=== PATIENT | female | born 1980 | race Caucasian/White ===

== ENCOUNTER 2024-06-18 19:45 | Observation (INO) ==
[2024-06-18] MEDS: levETIRAcetam 500 MG/5 ML VIAL IV STA (20:15)
[2024-06-18] MEDS: SODIUM CHLORIDE 0.9% 1,000 ML IV ONE ×2 (20:15→21:43)
[2024-06-18] MEDS: ONDANSETRON INJ 2 MG/ML 2 ML VIAL IV STA (20:46)
[2024-06-18 20:54] LABS: Hematocrit (blood only) 31.9 % (37.0-47.0); Hemoglobin 10.1 g/dl (12.0-16.0); Mean Corpuscular Hemoglobin 26.6 pg (25.0-34.0); Mean Corpuscular Hgb Conc 31.7 g/dL (32.0-36.0); Mean Corpuscular Volume 84.2 fL (80.0-100.0); Mean Platelet Volume 11.8 fL (9.4-12.4); Platelet Count 335 K/uL (130-400); RDW Coefficient of Variation 14.6 % (11.5-14.5); RDW Standard Deviation 44.7 fL (36.4-46.3); Red Blood Count 3.79 M/uL (4.20-5.40); White Blood Count 9.94 K/ul (4.8-10.8)
[2024-06-18 21:05] LABS: Influenza A virus by PCR Negative (Neg); Influenza B virus by PCR Negative (Neg); RSV by PCR Negative (Neg); SARS CoV2 RNA(COVID-19) Ceph NEGATIVE (Negative)
[2024-06-18 21:07] LABS: BUN Creatinine Ratio 10.4 (10-20); Bilirubin Direct 0.1 mg/dl (0-0.2); Bilirubin,Total 0.5 mg/dl (0.2-1.0); Calcium 8.9 mg/dl (8.6-10.3); Creatinine Clr Calc Pharmacy 110.3 ml/min; Magnesium 1.3 mg/dl (1.7-2.4); Phosphorus 2.7 mg/dl (2.5-4.9); Potassium 2.4 mmol/L (3.5-5.1); Total Protein 7.3 gm/dl (6.0-8.3)
[2024-06-18] MEDS: POTASSIUM CHLORIDE / WTR 10 MEQ/100 ML PLCT IV SCH (21:43)
[2024-06-18] MEDS: MAGNESIUM SULFATE / D5W 1 GM/100 ML BAG IV STA (21:43)
[2024-06-18 22:31] LABS: Amphetamines+Metham, Urine Neg (Neg); Barbiturates, Urine Neg (Neg); Benzodiazepine, Urine Neg (Neg); Cocaine, Urine Neg (Neg); Fentanyl, Urine Neg (Neg); MDMA (Ecstacy), Urine Neg (Neg); Marijuana, Urine Neg (Neg); Methadone, Urine Neg (Neg); Opiate, Urine Neg (Neg); Phencyclidine, Urine Neg (Neg)
[2024-06-18] MEDS: MAGNESIUM SULFATE / D5W 1 GM/100 ML BAG IV SCH (22:42)
[2024-06-18 23:36] LABS: INR 1.3 (0.9-1.1); Prothrombin Time 13.4 Seconds (9.0-12.0)
--- NOTE | 2024-06-18 23:43 | XRay Report ---
Exam(s): XR CXR 1 VIEW EXAM: XR Chest, 1 View CLINICAL HISTORY: Reason for exam: cough. TECHNIQUE: Frontal view of the chest. COMPARISON: No relevant prior studies available. FINDINGS: Lungs: Mild to moderate peribronchial thickening of the central lower lobe bronchi with a patchy opacity at the left lung base. No consolidation. Pleural space: Unremarkable. No pneumothorax. Heart: Unremarkable. No cardiomegaly. Mediastinum: Unremarkable. Normal mediastinal contour. Bones/joints: Unremarkable. No acute fracture. IMPRESSION: Bronchitis with left lower lobe infiltrate. Electronically signed by: Keily Wilson MD 06/18/24 23:42 PM
[2024-06-18 23:59] LABS: Ferritin 58.5 ng/ml (8-388)
[2024-06-19 00:04] LABS: Folate (Folic Acid),Ser orPlas 7.05 ng/ml (>5.38)
[2024-06-19 00:17] LABS: Thyroid Stimulating Hormone 0.334 uIu/ml (0.300-4.500)
[2024-06-19] MEDS: METOCLOPRAMIDE HCL INJ 5 MG/ML 2 ML VIAL IV STA (00:24)
[2024-06-19] MEDS: POTASSIUM CHLORIDE PWD 20 MEQ PACK PO STA ×3 (00:24→04:14)
[2024-06-19] MEDS: POTASSIUM CHLORIDE 20 MEQ in LACTATED RINGER'S 1,000 ML IV STA (00:24)
[2024-06-19 00:51] LABS: Pregnancy Test, Urine Negative (Negative)
[2024-06-19 00:55] LABS: Appearance Urine Clear (Clear); Bacteria Urine Automated None Seen (None Seen); Bilirubin Urine Negative (Negative); Blood Urine Trace (Negative); Color Urine Yellow; Epithelial Cell Urine Auto 0-2 /hpf (0-2); Glucose Urine UA Negative (Negative); Ketones Urine Negative (Negative); Leukocyte Esterase Urine Negative (Negative); Nitrite Urine Negative (Negative); Protein Urine 3+ (Negative); Specific Gravity Urine 1.011 (1.000-1.030); Urobilinogen Urine Negative (Negative); WBC Urine Automated 0-5 /hpf (0-5); pH Urine 6.5 (4.5-7.5)
--- NOTE | 2024-06-19 01:13 | CT Scan Report ---
Exam(s): CT HEAD Without Contrast EXAM: CT Head Without Intravenous Contrast CLINICAL HISTORY: Reason for exam: seizure. TECHNIQUE: Axial computed tomography images of the head/brain without intravenous contrast. CTDI is 37.51 mGy and DLP is 546.36 mGy-cm. Automated exposure control was utilized for the study. A dose lowering technique was utilized adhering to the principles of ALARA. COMPARISON: No relevant prior studies available. FINDINGS: Brain: Unremarkable. No hemorrhage. No significant white matter disease. No edema. Ventricles: Unremarkable. No ventriculomegaly. Bones/joints: Unremarkable. No acute fracture. Soft tissues: Unremarkable. Sinuses: Unremarkable as visualized. No acute sinusitis. Mastoid air cells: Unremarkable as visualized. No mastoid effusion. IMPRESSION: No evidence of acute intracranial pathology. Electronically signed by: Keily Wilson MD 06/19/24 01:12 AM
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
[2024-06-19] MEDS ORDERED: LORazepam 2 MG/1 ML VIAL IV PRN (01:20)
[2024-06-19] MEDS ORDERED: PROMETHAZINE 6.25 MG/50.25 ML BAG IV PRN (01:21)
[2024-06-19 01:56] LABS: Base Excess VBG -7.7 mEq/L; HCO3 VBG 23 mmol/L; Oxygen Saturation VBG 75.4 %; PCO2 VBG 73 mmHg (38-50); PO2 VBG 54 mmHg; pH VBG 7.11 (7.36-7.41)
[2024-06-19 02:00] LABS: Hematocrit (blood only) 26.1 % (37.0-47.0); Hemoglobin 8.3 g/dl (12.0-16.0); Reticulocyte % 0.63 % (0.50-2.00)
[2024-06-19 03:34] LABS: HCO3 VBG 27 mmol/L; Oxygen Saturation VBG < 60.0 %; PCO2 VBG 48 mmHg (38-50); PO2 VBG 33 mmHg; pH VBG 7.36 (7.36-7.41)
[2024-06-19 03:40] LABS: Basophils # (auto) 0.02 K/uL (0.00-0.20); Basophils % (auto) 0.2 %; Eosinophils # (auto) 0.02 K/uL (0.00-0.50); Eosinophils % (auto) 0.2 %; Hemoglobin 8.3 g/dl (12.0-16.0); Immature Granulocytes # (auto) 0.04 K/uL (0.01-0.20); Immature Granulocytes % (auto) 0.5 %; Lymphocytes # (auto) 0.63 K/uL (1.20-3.40); Lymphocytes % (auto) 7.5 %; Mean Corpuscular Hgb Conc 31.9 g/dL (32.0-36.0); Mean Corpuscular Volume 84.7 fL (80.0-100.0); Mean Platelet Volume 11.2 fL (9.4-12.4); Monocytes # (auto) 0.69 K/uL (0.11-0.59); Monocytes % (auto) 8.3 %; Neutrophils # (auto) 6.96 K/uL (1.40-6.50); Neutrophils % (auto) 83.3 %; Platelet Count 222 K/uL (130-400); RDW Coefficient of Variation 14.6 % (11.5-14.5); RDW Standard Deviation 45.1 fL (36.4-46.3); Red Blood Count 3.07 M/uL (4.20-5.40); White Blood Count 8.36 K/ul (4.8-10.8)
[2024-06-19 04:12] LABS: BUN Creatinine Ratio 8.7 (10-20); Bilirubin Direct 0.1 mg/dl (0-0.2); Bilirubin,Total 0.3 mg/dl (0.2-1.0); Calcium 7.6 mg/dl (8.6-10.3); Creatinine Clr Calc Pharmacy 160.7 ml/min; Magnesium 2.2 mg/dl (1.7-2.4); Potassium 3.5 mmol/L (3.5-5.1); Total Protein 5.8 gm/dl (6.0-8.3)
[2024-06-19] MEDS: CITALOPRAM 40 MG TAB PO SCH (08:28)
[2024-06-19] MEDS: BUPRENORPHINE/NALOXONE 8/2 MG TAB SL SCH (08:29)
[2024-06-19 08:48] LABS: Estimated Average Glucose 108 mg/dl; Hemoglobin A1C 5.4 % (4.5-5.6)
--- NOTE | 2024-06-19 09:42 | Electrocardiogram Report ---
Test Reason : Blood Pressure : */* mmHG Vent. Rate : 104 BPM Atrial Rate : 104 BPM P-R Int : 164 ms QRS Dur : 82 ms QT Int : 398 ms P-R-T Axes : 48 61 27 degrees QTcB Int : 523 ms Sinus tachycardia Nonspecific ST abnormality Prolonged QT Abnormal ECG No previous ECGs available Confirmed by Nidhi Holden (Sasha) on 06/19/2024 9:42:01 AM Referred By: REFERRED SELF Confirmed By: Nidhi Holden
[2024-06-19] MEDS: GADOBUTROL 65ML VIAL IV ONE (10:21)
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
--- NOTE | 2024-06-19 16:12 | Neurology Consultation ---
Date of Consultation June 19, 2024 Assessment & Plan (1) Seizure: Acute onset episode of loss of consciousness suspect seizure Provoked vers unprovoked etiology remains unclear MRI brain with and without contrast reveals no overt intracranial abnormality She was notably hypokalemic with hypomagnesemia as well No driving per [place] state law due to the above Recommend Keppra 500mg PO BID Recommend obtain EEGinpatient during this hospitalization Provide seizure precautions Utilize benzodiazepines emergently for any breakthrough clinical seizure like activity Recommend echocardiogram as part of complete workup Recommend monitor continued orthostatic vital sign assessments Continue frequent neurological assessments Obtain stat CT brain without contrast for any acute neurological decline Continue to monitor/control blood pressure & blood glucose Continue to monitor renal and hepatic function, keep euvolemic Continue to monitor electrolytes, replenish as needed Continue to monitor telemetry closely Recommend ZioPatch at DC if no evidence of arrhythmia during inpatient monitoring Ok from neurology perspective for VTE prophylaxis PT/OT/SLT to eval and treat Evaluate for KELVIN and consider outpatient polysomnography Plan for follow up outpatient with adult Neurology Telehealth Consultation Telehealth Information Telehealth Information: I performed this visit using a real-time telehealth connection between my location and the patients location ([facility]). After connecting through interactive tele-video, patient was identified by name and date of and/or wristband check.Patient (or authorized healthcare litigation claim representative) was informed that this was a telemedicine visit and it was being conducted confidentially over secure lines. My office door was closed and no one else was present in the room with me.Patient (or authorized healthcare litigation claim representative) provided consent to proceed with the visit, expressed an understanding of privacy and security of the telemedicine visit, and gave permission to have a hospital litigation claim representative in the room in order to assist with the visit and to conduct portions of the visit, as needed. I informed the patient (or authorized healthcare litigation claim representative) that I reviewed their record and presented the opportunity for them to ask any questions regarding the visit today. The patient agreed to participate. History of Present Illness Reason for Consultation: Seizure Requesting Physician: Dr. Palomares Attending Physician: Tiffanie Palomares MD History of Present Illness 43yo female presented to ER following episode of possible seizure versus syncope. Reportedly patient not feeling well in days leading up to yesterday and reported hearing a loud thud in their bedroom. She was reported to have demonstrated whole body shaking similar to an episode in her past. Reportedly the episode last five minutes without evidence of tongue biting or loss of bowel or bladder. It is reported that she was clinching her jaw/grinding her teeth and frothing from her mouth. Afterward she was confused/not remembering the event. She reports hx of polysubstance abuse. Denies recent changes in medications. Reports not feeling well recently and not sleeping more than 2-3 hours per night. She denies visual auditory olfactory gustatory or gastrointestinal sensation leading up to the event. She states she does not remember anything just before the event. She states she last remembers being upstairs with her daughter and then her was asking if she was okay. She denies SI/HI or typically feeling any aggression. She is agreeable to start Keppra BID and aware of/agreeable to no driving per [place] state law following an event of loss of consciousness/possible seizure. She verbalizes understanding of seizure precautions. She is agreeable to outpatient follow up. Allergies Allergy/AdvReac Type Severity Reaction Status Date / Time No Known Allergies Allergy Unverified 06/18/24 21:55 Home Medications Medication Instructions Recorded Confirmed Type buprenorphine 8 mg-naloxone 2 mg 2.5 tab sublingual DAILY 06/18/24 06/18/24 History sublingual tablet citalopram 40 mg tablet 40 mg PO DAILY 06/18/24 06/18/24 History Patient History Social History Smoking Status: Current every day smoker Tobacco Type: E-cigarettes / Vaping Hx Alcohol Use: No Hx Substance Use: No Preferred Language: Ecuadorean Communication Ability: Effective Exceptional Children Teacher Assistant Required: No Beliefs That Will Affect Care: None Current Living Situation: Spouse and Family Feels Safe at Home: Yes Physical Exam Neurological Examination: Mental Status: Awake and alert. Oriented to person, place, and time. Fluency naming repetition and comprehension appear grossly intact. Affect remains appropriate. Bruising left forehead CN testing: I: Deferred II:Reports no changes in visual acuity III/IV/: No evidence of gaze preference, hippus, nystagmus or roving eye movements V: Facial sensation reportedly grossly intact to light touch bilaterally VII: Facial movements appear without evidence of asymmetry VIII: Hearing appears grossly intact to loud voice bilaterally IX/X: Palate is unable to be accurately visualized via telemedicine XI: Shoulder shrug appears symmetric/ grossly intact bilaterally XII: Tongue protrudes midline without evidence of biting Motor exam: Strength appears grossly intact/symmetric in all extremities Sensory: Sensation is reportedly grossly intact throughout Coordination: No apparent evidence of dysmetria or dysdiadochokinesia Reflexes: Deferred Gait: Deferred Results & Data Vital Signs (Past 12 Hours) Vital Signs Temp Pulse Pulse Resp BP Pulse Ox O2 Del Method 06/19/24 16:05 79 06/19/24 15:43 37 C 81 20 87/58 L 95 Room Air 06/19/24 13:23 77 18 89/63 L 95 Room Air 06/19/24 10:37 82 16 85/61 L 94 Room Air 06/19/24 08:00 94 H 18 92/68 L 95 Room Air 06/19/24 06:24 77 17 100/73 94 Room Air 06/19/24 04:18 36.6 C 79 16 93/69 L 93 Room Air Laboratory Results Abnormal lab results 06/18/24 06/18/24 06/18/24 Range/Units 19:25 20:17 21:45 RBC 3.79 L (4.20-5.40) M/uL Hgb 10.1 L (12.0-16.0) g/dl Hct 31.9 L (37.0-47.0) % MCHC 31.7 L (32.0-36.0) g/dL RDW Coeff of Brian 14.6 H (11.5-14.5) % Neut # (Auto) (1.40-6.50) K/uL Lymph # (Auto) (1.20-3.40) K/uL [place] # (Auto) (0.11-0.59) K/uL PT 13.4 H (9.0-12.0) Seconds INR 1.3 H (0.9-1.1) VBG pH (7.36-7.41) VBG pCO2 (38-50) mmHg Potassium 2.4 L* (3.5-5.1) mmol/L Anion Gap 16 H (3-11) BUN (6-23) mg/dl Creatinine (0.6-1.2) mg/dl BUN/Creatinine Ratio (10-20) Glucose 152 H (70-99(Fasting)) mg/dl POC Glucose 120 H (70-99) mg/dl Calcium (8.6-10.3) mg/dl Magnesium 1.3 L (1.7-2.4) mg/dl Iron 11 L (35-150) mcg/dl AST 72 H (13-39) U/L Total Protein (6.0-8.3) gm/dl Albumin (3.4-5.0) gm/dl Urine Protein 3+ H (Negative) Urine Blood Trace H (Negative) Urine RBC (Auto) 3-5 H (0-2) /hpf U Hyaline Cast (Auto) 3-5 H (0-2) /lpf 06/19/24 06/19/24 Range/Units 01:28 03:26 RBC 3.07 L (4.20-5.40) M/uL Hgb 8.3 L 8.3 L (12.0-16.0) g/dl Hct 26.1 L 26.0 L (37.0-47.0) % MCHC 31.9 L (32.0-36.0) g/dL RDW Coeff of Brian 14.6 H (11.5-14.5) % Neut # (Auto) 6.96 H (1.40-6.50) K/uL Lymph # (Auto) 0.63 L (1.20-3.40) K/uL [place] # (Auto) 0.69 H (0.11-0.59) K/uL PT (9.0-12.0) Seconds INR (0.9-1.1) VBG pH 7.11 L (7.36-7.41) VBG pCO2 73 H (38-50) mmHg Potassium (3.5-5.1) mmol/L Anion Gap (3-11) BUN 4 L (6-23) mg/dl Creatinine 0.46 L (0.6-1.2) mg/dl BUN/Creatinine Ratio 8.7 L (10-20) Glucose 105 H (70-99(Fasting)) mg/dl POC Glucose (70-99) mg/dl Calcium 7.6 L (8.6-10.3) mg/dl Magnesium (1.7-2.4) mg/dl Iron (35-150) mcg/dl AST 42 H (13-39) U/L Total Protein 5.8 L D (6.0-8.3) gm/dl Albumin 3.0 L (3.4-5.0) gm/dl Urine Protein (Negative) Urine Blood (Negative) Urine RBC (Auto) (0-2) /hpf U Hyaline Cast (Auto) (0-2) /lpf Diagnostic Findings Chest X-Ray 06/18/24 19:59 Exam(s): XR CXR 1 VIEW EXAM: XR Chest, 1 View CLINICAL HISTORY: Reason for exam: cough. TECHNIQUE: Frontal view of the chest. COMPARISON: No relevant prior studies available. FINDINGS: Lungs: Mild to moderate peribronchial thickening of the central lower lobe bronchi with a patchy opacity at the left lung base. No consolidation. Pleural space: Unremarkable. No pneumothorax. Heart: Unremarkable. No cardiomegaly. Mediastinum: Unremarkable. Normal mediastinal contour. Bones/joints: Unremarkable. No acute fracture. IMPRESSION: Bronchitis with left lower lobe infiltrate. Electronically signed by: Keily Wilson MD 06/18/24 23:[address] 06/18/24 19:59 Exam(s): CT HEAD Without Contrast EXAM: CT Head Without Intravenous Contrast CLINICAL HISTORY: Reason for exam: seizure. TECHNIQUE: Axial computed tomography images of the head/brain without intravenous contrast. CTDI is 37.51 mGy and DLP is 546.36 mGy-cm. Automated exposure control was utilized for the study. A dose lowering technique was utilized adhering to the principles of ALARA. COMPARISON: No relevant prior studies available. FINDINGS: Brain: Unremarkable. No hemorrhage. No significant white matter disease. No edema. Ventricles: Unremarkable. No ventriculomegaly. Bones/joints: Unremarkable. No acute fracture. Soft tissues: Unremarkable. Sinuses: Unremarkable as visualized. No acute sinusitis. Mastoid air cells: Unremarkable as visualized. No mastoid effusion. IMPRESSION: No evidence of acute intracranial pathology. Electronically signed by: Keily Wilson MD 06/19/24 01:12 AM Brain MRI 06/19/24 01:19 HISTORY: Seizures. Chronic anemia. Trauma to the head with left forehead bruising. TECHNIQUE: Multiplanar multiecho MR imaging of the brain with and without IV contrast. 7.5 mL of Gadavist IV contrast was administered. COMPARISON: None. FINDINGS: The sella is not expanded. The cerebellar tonsils do not extend below the foramen magnum. The included upper cervical spinal cord is unremarkable in appearance. No areas of restricted diffusion to suggest acute infarct.The brain parenchyma demonstrates normal signal intensity on T2/FLAIR weighted imaging. No abnormal susceptibility artifact to suggest intracranial hemorrhage.No abnormal intracranial enhancement. Ventricular caliber is appropriate. Fourth ventricle is midline. The basal cisterns are patent. The major intracranial flow voids are maintained. The globes and orbits are unremarkable. The soft tissues of the skull base and scalp are unremarkable. The paranasal sinuses and mastoid air cells are well aerated. Mild maxillary sinus mucosal thickening. No air-fluid levels. IMPRESSION: * No acute findings. No evidence of acute infarct, intracranial hemorrhage, or enhancing intracranial mass. Electronically signed by Faustino Leroy 06-19-2024 10:37 AM Medications Administered Home Medications Medication Instructions Recorded Confirmed Last Taken buprenorphine 8 mg-naloxone 2 mg 2.5 tab sublingual DAILY 06/18/24 06/18/24 Unknown sublingual tablet citalopram 40 mg tablet 40 mg PO DAILY 06/18/24 06/18/24 Unknown Active Medications Generic Name Dose Route Start Last Admin Trade Name Freq PRN Reason Stop Dose Admin Buprenorphine/Naloxone 2.5 tab 06/19/24 09:00 06/19/24 08:29 Buprenorphine/Naloxone 8/2 Mg Tab SL 07/19/24 08:59 2.5 tab DAILY DARRIUS Administration Citalopram Hydrobromide 40 mg 06/19/24 09:00 06/19/24 08:28 Citalopram 40 Mg Tab PO 07/19/24 08:59 40 mg DAILY DARRIUS Administration
[2024-06-19] MEDS: ACETAMINOPHEN 325 MG TAB PO PRN (16:39)
[2024-06-19] MEDS: SODIUM CHLORIDE 0.9% 1,000 ML IV ONE (16:39)
[2024-06-19] MEDS: NICOTINE 14 MG/24 HR PATCH TD SCH (16:39)
[2024-06-19] MEDS: FERROUS SULFATE 325 MG TAB PO SCH (17:52)
[2024-06-19] MEDS: DOXYCYCLINE HYCLATE 100 MG CAP PO SCH (20:23)
[2024-06-19] MEDS: levETIRAcetam 500 MG TAB PO SCH (20:23)
--- NOTE | 2024-06-19 21:59 | Emergency Department Note ---
Impression & Plan Seizure, Hypomagnesemia, Acute hypokalemia ED Provider Note NAME: TOM MARTINEZ AGE: 43 SEX: F : 1980 ARRIVES VIA: Ambulance INFORMANT: Patient, EMS report ED PROVIDER(S): Salty Prado MD CHIEF COMPLAINT: Seizure MEDICAL DECISION MAKING: Patient presents due to concern for possible seizure that occurred prior to arrival. IV was established and blood work was obtained. Patient was ordered IV Keppra [address] head IV fluids. Patient with a normal white count hemoglobin of 10. The patient was having some nausea and vomiting so the patient was ordered IV Zofran. Patient was noted to have a potassium of 2.4 with a mag of 1.3. The patient was ordered 1 g of IV magnesium as well as 20 mEq IV potassium. EKG obtained does have QT prolongation. Did recommend the patient be admitted the patient is comfortable this plan of care. Patient still with some associated nausea and was ordered IV Reglan. The patient was also ordered additional IV fluids. I did speak the on- call hospitalist Dr. Holbrook and the patient was admitted to the medicine service. Chest x-ray with possible left lower lobe infiltrate. Antibiotics deferred to inpatient service. Discussion w/ other healthcare providers: Dr. Holbrook inpatient service Prior /Outside records reviewed: None Differential diagnosis: Epilepsy, infection, hypoglycemia, electrolyte abnormalities, cardiac sources, intracerebral event, trauma, toxicologic, neurologic, syncope, as well as other pathologies. Diagnostics, as interpreted by me: ECG: Sinus tachycardia, rate of 104, normal PA and QRS, prolonged QT no obvious STEMI. Cardiac monitoring: An order was placed for continuous cardiac monitoring. The monitor shows a rate of 102 with tachycardic and regular rhythm. Patient was placed on pulse oximetry Medical decision rules: None Imaging studies: I informally interpreted the patient's CT head does not show obvious ICH with formal report to follow. HPI: Patient presents to concern for possible seizure. Reportedly the heard a loud thud and noticed the patient to have generalized tonic-clonic activity. There were reports that the patient may have had a seizure about 2 years ago but the patient is not on any antiepileptic medication. Patient's BSG was greater than 100 prior to arrival and was afebrile with normal vital signs. Patient states that she does feel as though she has a rug burn to the left side of her forehead. The patient does not believe that she ever had a prior seizure. She does admit to decreased sleep. The patient states that she has felt generally unwell for the last 2 days or so. Patient denies any numbness tingling or focal weakness. Patient does smoke tobacco and does have a cough but it is dry. Patient does have a prior history of drug abuse and does use Suboxone. Patient denies any alcohol or drug use. The PAST MEDICAL HISTORY: Prior history of drug abuse PAST SURGICAL HISTORY: No pertinent past surgical history SOCIAL HISTORY: Prior history of drug abuse. Uses tobacco. HOME MEDICATIONS: See Below ALLERGIES: See Below VITALS: See Below PHYSICAL EXAMINATION: GENERAL: NAD, non-toxic. EYE EXAM: Normal conjunctiva. PERRL, no anisocoria and EOM's grossly intact w/o pain. OROPHARYNX: Moist mucus membranes, grossly normal dentition. NECK: Trachea midline, no stridor. Supple, no nuchal rigidity, no adenopathy, non-tender. No signs of meningismus. FROM of the neck with good chin to chest and neck extension. LUNGS: Clear to auscultation. Normal chest wall mechanics. HEART: Tachycardic and regular, no MRG. ABDOMEN: Abdomen soft, non-tender, no masses, no rebound or guarding. BACK: No CVA TTP. SKIN: No rashes and no bruising. UPPER EXTREMITIES: Upper extremities are grossly normal. LOWER EXTREMITIES: Grossly normal, no edema. NEURO EXAM: A&O x3, no obvious facial asymmetry, normal speech, moves all 4 extremities. Past Med/Surg History Problem List (Updated 06/19/24 @ 21:59 by Salty Prado MD) Acute hypokalemia (Acute) Hypomagnesemia (Acute) Seizure (Acute) Social History Smoking Status: Current every day smoker Tobacco Type: E-cigarettes / Vaping Hx Alcohol Use: No Hx Substance Use: No Preferred Language: [place]al[place] Communication Ability: Effective [employer] Consultant Required: No Beliefs That Will Affect Care: None Current Living Situation: Spouse and Family Feels Safe at Home: Yes Allergies Allergies Allergy/AdvReac Type Severity Reaction Status Date / Time No Known Allergies Allergy Unverified 06/18/24 21:55 Home Meds Home Medications Medication Instructions Recorded Confirmed buprenorphine 8 mg-naloxone 2 mg 2.5 tab sublingual DAILY 06/18/24 06/18/24 sublingual tablet citalopram 40 mg tablet 40 mg PO DAILY 06/18/24 06/18/24 Results & Data (ED) Vital Signs Vital Signs - 24 hr 06/18/24 22:00 06/18/24 22:30 06/19/24 00:00 Pulse Rate 82 75 74 Pulse Rate from SpO2 Sensor 82 75 Respiratory Rate 22 18 16 Blood Pressure 96/62 L 90/59 L 92/50 L Blood Pressure Mean 73 69 64 Pulse Oximetry 96 95 97 Oxygen Delivery Method Room Air Room Air Room Air 06/19/24 01:02 Pulse Rate 76 Pulse Rate from SpO2 Sensor Respiratory Rate Blood Pressure Blood Pressure Mean Pulse Oximetry Oxygen Delivery Method Home Medications Current Medication List: was personally reviewed by me Laboratory Data Attestation: I reviewed the patient's lab results. 06/19/24 03:26 06/19/24 03:26 Lab Results 06/18/24 06/18/24 06/18/24 Range/Units 19:25 20:17 20:20 WBC 9.94 (4.8-10.8) K/ul RBC 3.79 L (4.20-5.40) M/uL Hgb 10.1 L (12.0-16.0) g/dl Hct 31.9 L (37.0-47.0) % MCV 84.2 (80.0-100.0) fL MCH 26.6 (25.0-34.0) pg MCHC 31.7 L (32.0-36.0) g/dL RDW Std Deviation 44.7 (36.4-46.3) fL RDW Coeff of Brian 14.6 H (11.5-14.5) % Plt Count 335 (130-400) K/uL MPV 11.8 (9.4-12.4) fL PT 13.4 H (9.0-12.0) Seconds INR 1.3 H (0.9-1.1) Sodium 137 (136-145) mmol/L Potassium 2.4 L* (3.5-5.1) mmol/L Chloride 99 (98-107) mmol/L Carbon Dioxide 22 (21-32) mmol/L Anion Gap 16 H (3-11) BUN 7 (6-23) mg/dl Creatinine 0.67 (0.6-1.2) mg/dl Est Cr Clr Drug Dosing 110.3 ml/min eGFR 111.84 BUN/Creatinine Ratio 10.4 (10-20) Glucose 152 H (70-99(Fasting)) mg/dl POC Glucose 120 H (70-99) mg/dl Estimat Average Glucose 108 mg/dl Hemoglobin A1c 5.4 (4.5-5.6) % Calcium 8.9 (8.6-10.3) mg/dl Phosphorus 2.7 (2.5-4.9) mg/dl Magnesium 1.3 L (1.7-2.4) mg/dl Iron 11 L (35-150) mcg/dl Transferrin 233 (200-360) mg/dl Ferritin 58.5 (8-388) ng/ml Total Bilirubin 0.5 (0.2-1.0) mg/dl Direct Bilirubin 0.1 (0-0.2) mg/dl AST 72 H (13-39) U/L ALT 30 (7-52) U/L Alkaline Phosphatase 79 (34-104) U/L Total Creatine Kinase 109 (26-192) U/L Total Protein 7.3 (6.0-8.3) gm/dl Albumin 4.0 (3.4-5.0) gm/dl Vitamin B12 509 (180-914) pg/ml Folate 7.05 (>5.38) ng/ml TSH 0.334 (0.300-4.500) uIu/ml Urine Color Urine Appearance (Clear) Urine pH (4.5-7.5) Ur Specific [place] (1.000-1.030) Urine Protein (Negative) Urine Glucose (UA) (Negative) Urine Ketones (Negative) Urine Blood (Negative) Urine Nitrite (Negative) Urine Bilirubin (Negative) Urine Urobilinogen (Negative) Ur Leukocyte Esterase (Negative) Urine WBC (Auto) (0-5) /hpf Urine RBC (Auto) (0-2) /hpf U Hyaline Cast (Auto) (0-2) /lpf U Epithel Cells (Auto) (0-2) /hpf Urine Bacteria (Auto) (None Seen) Urine Test (Negative) Urine Opiates Screen (Neg) Ur Methadone, Qual (Neg) Urine Fentanyl Screen (Neg) Urine Barbiturates (Neg) Ur Phencyclidine (PCP) (Neg) U Amphetamin/Meth Scrn (Neg) MDMA (Ecstasy) Screen (Neg) U Benzodiazepines Scrn (Neg) Ur Cocaine Metabolite (Neg) U Marijuana (THC) Screen (Neg) SARS-CoV-2 (PCR) NEGATIVE (Negative) Influenza Type A (PCR) Negative (Neg) Influenza Type B (PCR) Negative (Neg) RSV (RT-PCR) Negative (Neg) 06/18/24 Range/Units 21:45 WBC (4.8-10.8) K/ul RBC (4.20-5.40) M/uL Hgb (12.0-16.0) g/dl Hct (37.0-47.0) % MCV (80.0-100.0) fL MCH (25.0-34.0) pg MCHC (32.0-36.0) g/dL RDW Std Deviation (36.4-46.3) fL RDW Coeff of Brian (11.5-14.5) % Plt Count (130-400) K/uL MPV (9.4-12.4) fL PT (9.0-12.0) Seconds INR (0.9-1.1) Sodium (136-145) mmol/L Potassium (3.5-5.1) mmol/L Chloride (98-107) mmol/L Carbon Dioxide (21-32) mmol/L Anion Gap (3-11) BUN (6-23) mg/dl Creatinine (0.6-1.2) mg/dl Est Cr Clr Drug Dosing ml/min eGFR BUN/Creatinine Ratio (10-20) Glucose (70-99(Fasting)) mg/dl POC Glucose (70-99) mg/dl Estimat Average Glucose mg/dl Hemoglobin A1c (4.5-5.6) % Calcium (8.6-10.3) mg/dl Phosphorus (2.5-4.9) mg/dl Magnesium (1.7-2.4) mg/dl Iron (35-150) mcg/dl Transferrin (200-360) mg/dl Ferritin (8-388) ng/ml Total Bilirubin (0.2-1.0) mg/dl Direct Bilirubin (0-0.2) mg/dl AST (13-39) U/L ALT (7-52) U/L Alkaline Phosphatase (34-104) U/L Total Creatine Kinase (26-192) U/L Total Protein (6.0-8.3) gm/dl Albumin (3.4-5.0) gm/dl Vitamin B12 (180-914) pg/ml Folate (>5.38) ng/ml TSH (0.300-4.500) uIu/ml Urine Color Yellow Urine Appearance Clear (Clear) Urine pH 6.5 (4.5-7.5) Ur Specific [place] 1.011 (1.000-1.030) Urine Protein 3+ H (Negative) Urine Glucose (UA) Negative (Negative) Urine Ketones Negative (Negative) Urine Blood Trace H (Negative) Urine Nitrite Negative (Negative) Urine Bilirubin Negative (Negative) Urine Urobilinogen Negative (Negative) Ur Leukocyte Esterase Negative (Negative) Urine WBC (Auto) 0-5 (0-5) /hpf Urine RBC (Auto) 3-5 H (0-2) /hpf U Hyaline Cast (Auto) 3-5 H (0-2) /lpf U Epithel Cells (Auto) 0-2 (0-2) /hpf Urine Bacteria (Auto) None Seen (None Seen) Urine Test Negative (Negative) Urine Opiates Screen Neg (Neg) Ur Methadone, Qual Neg (Neg) Urine Fentanyl Screen Neg (Neg) Urine Barbiturates Neg (Neg) Ur Phencyclidine (PCP) Neg (Neg) U Amphetamin/Meth Scrn Neg (Neg) MDMA (Ecstasy) Screen Neg (Neg) U Benzodiazepines Scrn Neg (Neg) Ur Cocaine Metabolite Neg (Neg) U Marijuana (THC) Screen Neg (Neg) SARS-CoV-2 (PCR) (Negative) Influenza Type A (PCR) (Neg) Influenza Type B (PCR) (Neg) RSV (RT-PCR) (Neg) Administered Medications Acetaminophen (Acetaminophen 325 Mg Tab) 650 mg PO QID PRN PRN Reason: pain/fever Stop: 07/19/24 01:19 Last Admin: 06/19/24 16:39 Dose: 650 mg Documented By: MEENA Buprenorphine/Naloxone (Buprenorphine/Naloxone 8/2 Mg Tab) 2.5 tab SL DAILY DARRIUS Stop: 07/19/24 08:59 Last Admin: 06/19/24 08:29 Dose: 2.5 tab Documented By: CASEY Citalopram Hydrobromide (Citalopram 40 Mg Tab) 40 mg PO DAILY DARRIUS Stop: 07/19/24 08:59 Last Admin: 06/19/24 08:28 Dose: 40 mg Documented By: CASEY Doxycycline Hyclate (Doxycycline Hyclate 100 Mg Cap) 100 mg PO BID DARRIUS Stop: 06/24/24 20:59 Last Admin: 06/19/24 20:23 Dose: 100 mg Documented By: ODILIA Ferrous Sulfate (Ferrous Sulfate 325 Mg Tab) 325 mg PO QAM DARRIUS Stop: 07/19/24 17:09 Last Admin: 06/19/24 17:52 Dose: Not Given Documented By: MEENA Levetiracetam (Levetiracetam 500 Mg Tab) 500 mg PO BID DARRIUS Stop: 07/19/24 20:59 Last Admin: 06/19/24 20:23 Dose: 500 mg Documented By: ODILIA Nicotine (Nicotine 14 Mg/24 Hr Patch) 1 patch TD QAM [facility] Stop: 07/19/24 16:14 Last Admin: 06/19/24 16:39 Dose: 1 patch Documented By: MEENA Discontinued Medications Gadobutrol (Gadobutrol 65ml Vial) 7.5 ml IV ONCE ONE Stop: 06/19/24 10:21 Last Admin: 06/19/24 10:21 Dose: 7.5 ml Documented By: KIMI Sodium Chloride (Nss) 1,000 mls @ 999 mls/hr IV .Q1H1M ONE Stop: 06/18/24 20:59 Last Infusion: 06/18/24 21:43 Dose: Infused Documented By: Admin: 06/18/24 20:15 Dose: 999 mls/hr Documented By: WENDY Sodium Chloride (Nss) 1,000 mls @ 999 mls/hr IV .Q1H1M ONE Stop: 06/18/24 22:17 Last Infusion: 06/18/24 22:59 Dose: Infused Documented By: Admin: 06/18/24 21:43 Dose: 999 mls/hr Documented By: WENDY Magnesium Sulfate/Dextrose (Magnesium Sulfate / D5w) 1 gm in 100 mls @ 100 mls/hr IV NOW STA Stop: 06/18/24 22:16 Last Infusion: 06/18/24 22:59 Dose: Infused Documented By: Admin: 06/18/24 21:43 Dose: 100 mls/hr Documented By: WENDY Potassium Chloride (K Amaury / Wtr) 10 meq in 100 mls @ 100 mls/hr IV Q1H DARRIUS Stop: 06/18/24 23:29 Last Infusion: 06/18/24 23:58 Dose: Infused Documented By: Admin: 06/18/24 22:42 Dose: 100 mls/hr Documented By: Infusion: 06/18/24 22:42 Dose: Infused Documented By: Admin: 06/18/24 21:43 Dose: 100 mls/hr Documented By: WENDY Magnesium Sulfate/Dextrose (Magnesium Sulfate / D5w) 1 gm in 100 mls @ 50 mls/hr IV Q2H DARRIUS Stop: 06/19/24 02:59 Last Infusion: 06/19/24 02:48 Dose: Infused Documented By: Admin: 06/19/24 00:44 Dose: 50 mls/hr Documented By: Infusion: 06/19/24 00:43 Dose: Infused Documented By: Admin: 06/18/24 22:42 Dose: 50 mls/hr Documented By: WENDY Potassium Chloride 20 meq/ (Lactated Ringer's) 1,010 mls @ 100 mls/hr IV .Q10H6M STA Stop: 06/19/24 09:22 Last Infusion: 06/19/24 05:02 Dose: Infused Documented By: Admin: 06/19/24 00:24 Dose: 200 mls/hr Documented By: WENDY Sodium Chloride (Nss) 1,000 mls @ 999 mls/hr IV .Q1H1M ONE Stop: 06/19/24 17:12 Last Infusion: 06/19/24 17:40 Dose: Infused Documented By: Admin: 06/19/24 16:39 Dose: 999 mls/hr Documented By: MEENA Levetiracetam (Levetiracetam 500 Mg/5 Ml Vial) 2,000 mg IV NOW STA Stop: 06/18/24 19:58 Last Admin: 06/18/24 20:15 Dose: 2,000 mg Documented By: WENDY Metoclopramide HCl (Metoclopramide Hcl Inj 5 Mg/Ml 2 Ml Vial) 10 mg IV NOW STA Stop: 06/18/24 22:07 Last Admin: 06/19/24 00:24 Dose: Not Given Documented By: WENDY Ondansetron HCl (Ondansetron Inj 2 Mg/Ml 2 Ml Vial) 4 mg IV NOW STA Stop: 06/18/24 20:41 Last Admin: 06/18/24 20:46 Dose: 4 mg Documented By: WENDY Potassium Chloride (Potassium Chloride Pwd 20 Meq Pack) 40 meq PO NOW STA Stop: 06/18/24 22:53 Last Admin: 06/19/24 00:24 Dose: 40 meq Documented By: WENDY Potassium Chloride (Potassium Chloride Pwd 20 Meq Pack) 40 meq PO NOW STA Stop: 06/19/24 01:23 Last Admin: 06/19/24 02:40 Dose: Not Given Documented By: WENDY Potassium Chloride (Potassium Chloride Pwd 20 Meq Pack) 40 meq PO ONE STA Stop: 06/19/24 03:44 Last Admin: 06/19/24 04:14 Dose: 40 meq Documented By: KIRSTEN Imaging Data Radiologist's Impression: Chest X-Ray 06/18/24 19:59 Exam(s): XR CXR 1 VIEW EXAM: XR Chest, 1 View CLINICAL HISTORY: Reason for exam: cough. TECHNIQUE: Frontal view of the chest. COMPARISON: No relevant prior studies available. FINDINGS: Lungs: Mild to moderate peribronchial thickening of the central lower lobe bronchi with a patchy opacity at the left lung base. No consolidation. Pleural space: Unremarkable. No pneumothorax. Heart: Unremarkable. No cardiomegaly. Mediastinum: Unremarkable. Normal mediastinal contour. Bones/joints: Unremarkable. No acute fracture. IMPRESSION: Bronchitis with left lower lobe infiltrate. Electronically signed by: Keily Wilson MD 06/18/24 23:[address] 06/18/24 19:59 Exam(s): CT HEAD Without Contrast EXAM: CT Head Without Intravenous Contrast CLINICAL HISTORY: Reason for exam: seizure. TECHNIQUE: Axial computed tomography images of the head/brain without intravenous contrast. CTDI is 37.51 mGy and DLP is 546.36 mGy-cm. Automated exposure control was utilized for the study. A dose lowering technique was utilized adhering to the principles of ALARA. COMPARISON: No relevant prior studies available. FINDINGS: Brain: Unremarkable. No hemorrhage. No significant white matter disease. No edema. Ventricles: Unremarkable. No ventriculomegaly. Bones/joints: Unremarkable. No acute fracture. Soft tissues: Unremarkable. Sinuses: Unremarkable as visualized. No acute sinusitis. Mastoid air cells: Unremarkable as visualized. No mastoid effusion. IMPRESSION: No evidence of acute intracranial pathology. Electronically signed by: Keily Wilson MD 06/19/24 01:12 AM Discharge Plan Visit Data Chief Complaint: Seizure Stated Complaint: Seizure ED Provider: Salty Prado Discharge Problem: Seizure, Hypomagnesemia, Acute hypokalemia Patient Disposition: Admitted As Inpatient Condition: Good Discharge Instructions Interventions: ED Discharge Assessment Last Done: 06/19/24 02:56
[2024-06-20 11:49] LABS: Hematocrit (blood only) 30.2 % (37.0-47.0); Hemoglobin 9.1 g/dl (12.0-16.0); Mean Corpuscular Hgb Conc 30.1 g/dL (32.0-36.0); Mean Corpuscular Volume 86.3 fL (80.0-100.0); Platelet Count 287 K/uL (130-400); RDW Coefficient of Variation 14.8 % (11.5-14.5); RDW Standard Deviation 47.3 fL (36.4-46.3); White Blood Count 7.56 K/ul (4.8-10.8)
[2024-06-20 12:04] LABS: BUN Creatinine Ratio 4.9 (10-20); Calcium 8.4 mg/dl (8.6-10.3); Creatinine Clr Calc Pharmacy 198.5 ml/min; Magnesium 1.7 mg/dl (1.7-2.4); Phosphorus 2.3 mg/dl (2.5-4.9); Potassium 3.5 mmol/L (3.5-5.1)
[2024-06-20 12:09] VITALS: BP 100/61; RESP 22; TEMP 98.4; O2SAT 92
[2024-06-20 14:24] VITALS: PULSE 64
[2024-06-20] MEDS: POT PHOSPHATE MONOBASIC W/ SOD TAB PO SCH (14:30)
--- NOTE | 2024-06-20 14:51 | Hospitalist Progress Note ---
Date of Service June 20, 2024 Assessment & Plan (1) Seizure: Plan Pt is a 43yoF with PMHx significant for chronic anemia (baseline hemoglobin of 11), mood disorder, chronic pain on Suboxone, past history of substance abuse, ongoing vape use who presents with concern for seizure. Seizure Possible seizure disorder Head CT and brain MRI unremarkable EEG pending Echo pending Neurology consult Re: Possible seizure disorder -EEG -Keppra 500mg BID, pt agreeable -no driving, needs [employer] form completed -Close Neurology and PCP followup -Echo -[place] monitoring Seizure precautions Ativan PRN for seizures Continue to monitor Hypotension BP hypotensive Orthostatic vitals ordered 1L Fluid bolus on 06/19 Pt notes her BP is usually low Continue to monitor Bronchitis vs. possible pneumonia Noted on chest xray Bronchitis with left lower lobe infiltrate. pt with cough at home Started on doxycycline Hypokalemia, hypomagnesemia Replete as needed iron Deficiency Anemia Acute on Chronic Anemia hgb drop from 10.1 to 8 range Possible dilutional component to account for acute drop FOBT pending Iron level low- with anemia will supplement Continue to monitor h/h Chronic Medical Problems: Acute on chronic anemia, no overt bleed on history mood disorder, stable Hyperglycemia ro DM- normal chronic pain on Suboxone ongoing vape use DVT prophylaxis. SCDs re: recent head trauma Full code Admission and Anticipated Discharge Date Admission Date: June 19, 2024 Review of Systems Review of Systems: All systems reviewed & are unremarkable except as noted in Subjective Physical Exam Physical Exam: General: Alert, oriented. No acute distress HEENT: NC/AT CV: RRR Resp: Breath sounds clear bilaterally, no increased effort of breathing Abdomen: Soft, nontender Extremities: No edema in lower extremities bilaterally. Results & Data Results & Data Vital Signs (Past 12 Hours) Vital Signs Temp Pulse Pulse Resp BP Pulse Ox O2 Del Method 06/20/24 14:16 36.9 C 72 22 100/61 92 06/20/24 13:05 64 06/20/24 12:02 36.9 C 72 22 100/61 92 Room Air 06/20/24 07:39 36.6 C 81 17 101/67 94 Room Air 06/20/24 05:29 65 06/20/24 03:34 37 C 84 16 101/63 96 Room Air
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
--- NOTE | 2024-06-22 06:36 | Electroencephalogram ---
EEG Procedure Note Date of Service June 20, 2024 Start / End Times Start Time: 0657 End Time: 716 Referring Physician Junaid Holbrook History A 43 year old female with possible seizure. EEG performed for evaluation of epileptiform activtiy. Home Medication List Medication Instructions Recorded Confirmed Type buprenorphine 8 mg-naloxone 2 mg 2.5 tab sublingual DAILY 06/18/24 06/18/24 History sublingual tablet citalopram 40 mg tablet 40 mg PO DAILY 06/18/24 06/18/24 History doxycycline hyclate 100 mg capsule 100 mg PO BID #8 caps 06/20/24 Rx ferrous sulfate 325 mg (65 mg 325 mg PO QAM #30 tabs 06/20/24 Rx iron) tablet,delayed release levetiracetam 500 mg tablet 500 mg PO BID #60 tabs 06/20/24 Rx (Keppra) sodium di- and 2 tab PO QID #6 tabs 06/20/24 Rx monophosphate-potassium phos monobasic 250 mg tablet (Phospha Neutral) Inpatient Medication List Discontinued Medications Acetaminophen (Acetaminophen 325 Mg Tab) 650 mg PO QID PRN PRN Reason: pain/fever Stop: 07/19/24 01:19 Last Admin: 06/20/24 08:19 Dose: 650 mg Documented By: Admin: 06/19/24 16:39 Dose: 650 mg Documented By: MEENA Buprenorphine/Naloxone (Buprenorphine/Naloxone 8/2 Mg Tab) 2.5 tab SL DAILY [facility] Stop: 07/19/24 08:59 Last Admin: 06/20/24 08:19 Dose: 2.5 tab Documented By: Admin: 06/19/24 08:29 Dose: 2.5 tab Documented By: [facility] Citalopram Hydrobromide (Citalopram 40 Mg Tab) 40 mg PO DAILY [facility] Stop: 07/19/24 08:59 Last Admin: 06/20/24 08:19 Dose: 40 mg Documented By: Admin: 06/19/24 08:28 Dose: 40 mg Documented By: [facility] Doxycycline Hyclate (Doxycycline Hyclate 100 Mg Cap) 100 mg PO BID [facility] Stop: 06/24/24 20:59 Last Admin: 06/20/24 08:19 Dose: 100 mg Documented By: Admin: 06/19/24 20:23 Dose: 100 mg Documented By: ODILIA Ferrous Sulfate (Ferrous Sulfate 325 Mg Tab) 325 mg PO QAM [facility] Stop: 07/19/24 17:09 Last Admin: 06/20/24 08:20 Dose: 325 mg Documented By: Admin: 06/19/24 17:52 Dose: Not Given Documented By: MEENA Gadobutrol (Gadobutrol 65ml Vial) 7.5 ml IV ONCE ONE Stop: 06/19/24 10:21 Last Admin: 06/19/24 10:21 Dose: 7.5 ml Documented By: KIMI Sodium Chloride (Nss) 1,000 mls @ 999 mls/hr IV .Q1H1M ONE Stop: 06/18/24 20:59 Last Infusion: 06/18/24 21:43 Dose: Infused Documented By: Admin: 06/18/24 20:15 Dose: 999 mls/hr Documented By: WENDY Sodium Chloride (Nss) 1,000 mls @ 999 mls/hr IV .Q1H1M ONE Stop: 06/18/24 22:17 Last Infusion: 06/18/24 22:59 Dose: Infused Documented By: Admin: 06/18/24 21:43 Dose: 999 mls/hr Documented By: WENDY Magnesium Sulfate/Dextrose (Magnesium Sulfate / D5w) 1 gm in 100 mls @ 100 mls/hr IV NOW STA Stop: 06/18/24 22:16 Last Infusion: 06/18/24 22:59 Dose: Infused Documented By: Admin: 06/18/24 21:43 Dose: 100 mls/hr Documented By: WENDY Potassium Chloride (K Amaury / Wtr) 10 meq in 100 mls @ 100 mls/hr IV Q1H [facility] Stop: 06/18/24 23:29 Last Infusion: 06/18/24 23:58 Dose: Infused Documented By: Admin: 06/18/24 22:42 Dose: 100 mls/hr Documented By: Infusion: 06/18/24 22:42 Dose: Infused Documented By: Admin: 06/18/24 21:43 Dose: 100 mls/hr Documented By: WENDY Magnesium Sulfate/Dextrose (Magnesium Sulfate / D5w) 1 gm in 100 mls @ 50 mls/hr IV Q2H [facility] Stop: 06/19/24 02:59 Last Infusion: 06/19/24 02:48 Dose: Infused Documented By: Admin: 06/19/24 00:44 Dose: 50 mls/hr Documented By: Infusion: 06/19/24 00:43 Dose: Infused Documented By: Admin: 06/18/24 22:42 Dose: 50 mls/hr Documented By: WENDY Potassium Chloride 20 meq/ (Lactated Ringer's) 1,010 mls @ 100 mls/hr IV .Q10H6M STA Stop: 06/19/24 09:22 Last Infusion: 06/19/24 05:02 Dose: Infused Documented By: Admin: 06/19/24 00:24 Dose: 200 mls/hr Documented By: WENDY Sodium Chloride (Nss) 1,000 mls @ 999 mls/hr IV .Q1H1M ONE Stop: 06/19/24 17:12 Last Infusion: 06/19/24 17:40 Dose: Infused Documented By: Admin: 06/19/24 16:39 Dose: 999 mls/hr Documented By: MEENA Levetiracetam (Levetiracetam 500 Mg/5 Ml Vial) 2,000 mg IV NOW STA Stop: 06/18/24 19:58 Last Admin: 06/18/24 20:15 Dose: 2,000 mg Documented By: WENDY Levetiracetam (Levetiracetam 500 Mg Tab) 500 mg PO BID [facility] Stop: 07/19/24 20:59 Last Admin: 06/20/24 08:19 Dose: 500 mg Documented By: Admin: 06/19/24 20:23 Dose: 500 mg Documented By: ODILIA Metoclopramide HCl (Metoclopramide Hcl Inj 5 Mg/Ml 2 Ml Vial) 10 mg IV NOW STA Stop: 06/18/24 22:07 Last Admin: 06/19/24 00:24 Dose: Not Given Documented By: WENDY Miscellaneous (Remove Nicoderm Patch) 1 each N/A DAILY@0859 [facility] Stop: 07/20/24 08:58 Last Admin: 06/20/24 08:20 Dose: 1 each Documented By: LIZZY Nicotine (Nicotine 14 Mg/24 Hr Patch) 1 patch TD QAM [facility] Stop: 07/19/24 16:14 Last Admin: 06/20/24 08:20 Dose: 1 patch Documented By: Admin: 06/19/24 16:39 Dose: 1 patch Documented By: MEENA Ondansetron HCl (Ondansetron Inj 2 Mg/Ml 2 Ml Vial) 4 mg IV NOW STA Stop: 06/18/24 20:41 Last Admin: 06/18/24 20:46 Dose: 4 mg Documented By: WENDY Potassium Chloride (Potassium Chloride Pwd 20 Meq Pack) 40 meq PO NOW STA Stop: 06/18/24 22:53 Last Admin: 06/19/24 00:24 Dose: 40 meq Documented By: WENDY Potassium Chloride (Potassium Chloride Pwd 20 Meq Pack) 40 meq PO NOW STA Stop: 06/19/24 01:23 Last Admin: 06/19/24 02:40 Dose: Not Given Documented By: WENDY Potassium Chloride (Potassium Chloride Pwd 20 Meq Pack) 40 meq PO ONE STA Stop: 06/19/24 03:44 Last Admin: 06/19/24 04:14 Dose: 40 meq Documented By: KIRSTEN Potassium Phosphate (Pot Phosphate Monobasic W/ Sod Tab) 2 tab PO QID [facility] Stop: 07/20/24 14:09 Last Admin: 06/20/24 14:30 Dose: 2 tab Documented By: LIZZY Description This is a 21 electrode EEG with a single channel dedicated to limited EKG. The electrodes were placed in accordance with the International 10-20 system. REPORT: At the onset of the EEG, the patient is awake. The background activity consist of 10-11 Hz, persistent, posteriorly dominant, moderate amplitude, symmetric and rhythmic activity that is reactive to eye opening. Anteriorly, it consist of a mixture of low voltage indeterminate activity and 15-25 Hz, persistent, low amplitude, symmetric and rhythmic activity. Stepwise intermittent photic stimulation (1-21 Hz) does not induce any abnormalities. Drowsiness is characterized by low amplitude mixed frequency activity, roving eye movements, and decreased eye blinking and muscle artifact. Interpretation IMPRESSION: This is a normal awake and drowsy routine EEG. There is no evidence of focal slowing or epileptiform activity.
== END 2024-06-20 15:37 | disposition home or self-care (01) | DRG 101 ==
LOC: ED 19:45 → MERGE 06-19 01:18 → INTOOBSV 06-19 01:18 → EDINP 06-19 01:18 → 2N 06-19 02:56